=== PATIENT | male | born 1985 | race African-American/Black ===

== ENCOUNTER 2018-07-29 08:27 | Emergency (ER) | payer MEDICAID ==
[~2018-07-29] VITALS: Ht 180.3 cm; Wt 126.0 kg
[2018-07-29] MEDS ORDERED: INSU100I28 SQ (08:35)
[2018-07-29] MEDS ORDERED: KETOROLAC 60MG/2ML VIAL IM ONE (12:45)
[2018-07-29 15:09] VITALS: BP 136/86
== END 2018-07-29 15:12 | disposition home or self-care (01) ==
LOC: ER 08:27
DX: M79.662 Pain in left lower leg (principal); E11.65 Type 2 diabetes mellitus with hyperglycemia; V49.59XA Passenger injured in collision with other motor vehicles in traffic accident, initial encounter; Y93.89 Activity, other specified; Y92.89 Other specified places as the place of occurrence of the external cause; Y99.8 Other external cause status; Z79.4 Long term (current) use of insulin
CPT/HCPCS: 73590; 82962; 96372; 99283; J1885; Z7610